=== PATIENT | female | born 1970 | race American Indian/Alaskan Native ===

== ENCOUNTER 2019-09-08 10:40 | Emergency (ER) | payer SELFPAY ==
[2019-09-08] MEDS ORDERED: MECLIZINE 25 MG TAB PO ONE (15:30)
--- NOTE | 2019-09-08 15:38 | Emergency Department Report ---
ED Dizziness HPI - General Chief Complaint: Dizziness Stated Complaint: DIZZY/LIGHT HEADED Time Seen by Provider: 09/08/19 15:16 Source: patient Mode of arrival: Wheelchair Limitations: No Limitations - History of Present Illness Initial Comments: This is a 49-year-old patient who presents to ED with no prior medical history complaining of dizziness that started this morning. Patient states she felt a little lightheaded around 7:30 AM this morning. Patient states she feels like the room is spinning around her. Patient denies any recent upper respiratory infection or any medical conditions such as diabetes, asthma, cholesterol or hypertension. Patient stated that she had about 2 episodes of vomiting. Patient also states that she has not eating anything today. MD Complaint: dizziness, lightheadedness -: hour(s) Timing: sudden onset Description: "room spinning" History of Same: No History of Trauma: No Severity: mild Improves With: remaining still Worsens With: movement Associated Symptoms: denies: chest pain, confusion, cough, fever/chills, loss of appetite, syncope, weakness - Related Data Previous Rx's Medication Instructions Recorded Last Taken Type Meclizine [Antivert] 25 mg PO TID PRN #30 tablet 09/08/19 Unknown Rx Allergies Allergy/AdvReac Type Severity Reaction Status Date / Time No Known Allergies Allergy Unverified 09/08/19 10:53 ED Review of Systems ROS: Stated complaint: DIZZY/LIGHT HEADED Other details as noted in HPI Comment: All other systems reviewed and negative ED Past Medical Hx - Past Medical History Previous Medical History?: No - Surgical History Past Surgical History?: No - Social History Smoking Status: Never Smoker - Medications Home Medications: Home Medications Medication Instructions Recorded Confirmed Last Taken Type Meclizine [Antivert] 25 mg PO TID PRN #30 tablet 09/08/19 Unknown Rx ED Physical Exam - General Limitations: No Limitations General appearance: alert, in no apparent distress - Head Head exam: Present: atraumatic, normocephalic - Eye Eye exam: Present: normal appearance, PERRL Pupils: Present: normal accommodation - ENT ENT exam: Present: mucous membranes moist - Expanded ENT Exam Expanded TM/Canal exam: Effusion: Right TM, Left TM Mouth exam: Present: normal external inspection Teeth exam: Present: normal inspection - Neck Neck exam: Present: normal inspection - Respiratory Respiratory exam: Present: normal lung sounds bilaterally. Absent: respiratory distress - Cardiovascular Cardiovascular Exam: Present: regular rate, normal rhythm. Absent: systolic murmur, diastolic murmur, rubs, gallop - GI/Abdominal GI/Abdominal exam: Present: soft, normal bowel sounds - Extremities Exam Extremities exam: Present: normal inspection - Back Exam Back exam: Present: normal inspection - Neurological Exam Neurological exam: Present: alert, oriented X3, normal gait - Expanded Neurological Exam Expanded Patient oriented to: Present: person, place, time Speech: Present: fluid speech Cerebellar function: Finger to Nose: Normal Sensory exam: Upper Extremity Light Touch: Normal, Lower Extremity Light Touch: Normal Motor strength exam: RUE: 5, LUE: 5, RLE: 5, LLE: 5 Best Eye Response (Jennifer): (4) open spontaneously Best Motor Response ([place]): (6) obeys commands Best Verbal Response (Jennifer): (5) oriented [place] Total: 15 - Psychiatric Psychiatric exam: Present: normal affect, normal mood - Skin Skin exam: Present: warm, dry, intact, normal color. Absent: rash ED Course Vital Signs 09/08/19 16:07 Pulse Rate 70 Respiratory 16 Rate Blood Pressure 118/61 [Right] O2 Sat by Pulse 100 Oximetry ED Medical Decision Making - Medical Decision Making This 49-year-old female presented with dizziness. Patient received meclizine in the ED. Patient was able to toe walk tiptoe towards me and backwards without falling Orthostatic vitals completed and within normal limits. Patient able to walk to the bathroom and back without any problems after medications. Discussed with patient proper hydration and eating appropriately 3 times a day as this could cause some lightheadedness. Discussed with patient to take medication as prescribed. Discussed the vertigo will resolve on its own. Discussed neural neurology referral/ENT referral. Discussed with patient to follow-up with the primary care physician in 3 days. Vital signs are normal patient is in no acute distress patient had no neurological deficit. Critical care attestation.: If time is entered above; I have spent that time in minutes in the direct care of this critically ill patient, excluding procedure time. ED Disposition Clinical Impression: Vertigo, Benign positional vertigo Disposition: - TO HOME OR SELFCARE Is pt being admited?: No Does the pt Need Aspirin: No Condition: Stable Instructions: Dizziness (ED), Vertigo (ED) Additional Instructions: Make sure to follow up with the primary care physician as discussed. Take all your medications as you've been prescribed. If you have any worsening symptoms or develop new symptoms please return to ED immediately. Prescriptions: Meclizine [Antivert] 25 mg PO TID PRN #30 tablet PRN Reason: Vertigo Referrals: PRIMARY CARE, [Primary Care Provider] - 3-5 Days JOE BRAR MD [Staff Physician] - 3-5 Days [facility] [Provider Group] - 3-5 Days Forms: Accompanied Note, Work/School Release Form(ED) Time of Disposition: 17:12
[2019-09-08] MEDS ORDERED: ONDANSETRON 4 MG ODT TAB PO ONE (16:04)
[2019-09-08 16:07] VITALS: BP 118/61
== END 2019-09-08 17:43 | disposition home or self-care (01) ==
LOC: ED 10:40
DX: H81.10 Benign paroxysmal vertigo, unspecified ear (principal)
CPT/HCPCS: 82962; 93005; 93010; Q0162